=== PATIENT | male | born 1930 | race Caucasian/White ===

== ENCOUNTER → 2016-06-05 | Outpatient (CLI) | payer MEDICARE ==
[~2016-06-05] MED LIST: ASPI325T4 PO; DABI75CA3 PO; HYDR1TAB12 PO; MAGN100T6 PO; RIVA15TA PO; SIMV20TA3 PO; VITA1TAB68 PO
== END | disposition home or self-care (01) ==
LOC: RAD 11:53
PROVIDERS: ATTEND Internal Medicine
DX: R13.10 Dysphagia, unspecified (principal)
CPT/HCPCS: 74220

== ENCOUNTER 2016-07-24 10:13 | Inpatient (IN) | payer MEDICARE ==
[~2016-07-24] VITALS: Ht 182.9 cm; Wt 92.5 kg
[2016-07-24] MEDS ORDERED: OMNIPAQUE 350 MG/ML, 100ML BOTTLE ONE (10:48)
[2016-07-24] MEDS ORDERED: ASPIRIN 325 MG TABLET ONE (11:05)
[2016-07-24] MEDS ORDERED: SODIUM CHLORIDE 0.9% 1,000 ML IV ONE (11:07)
[2016-07-24] MEDS ORDERED: APIX2.5T PO (11:12)
[2016-07-24] MEDS ORDERED: ASPIRIN 325 MG TABLET PO ONE (11:30)
[2016-07-24] MEDS ORDERED: SODIUM CHLORIDE FLUSH 10ML SYR IVF ONE (11:30)
[2016-07-24] MEDS ORDERED: ACETAMINOPHEN 650 MG/20.3 ML UDC PO PRN (12:30)
[2016-07-24] MEDS ORDERED: DOCUSATE CALCIUM 240 MG CAPSULE PO PRN (12:30)
[2016-07-24 14:00] VITALS: BP 150/72
[2016-07-24] MEDS ORDERED: ACETAMINOPHEN 325 MG SUPP PR PRN (14:00)
[2016-07-24] MEDS ORDERED: HEPARIN wt. based STROKE protocol MC PRN (16:00)
[2016-07-24] MEDS: SODIUM CHLORIDE 0.9% 1,000 ML IV SCH ×2 (16:14→23:06)
[2016-07-24 20:01] VITALS: BP 130/66
[2016-07-24] MEDS ORDERED: SIMVASTATIN 20 MG TABLET PO SCH (21:00)
[2016-07-24] MEDS ORDERED: CLOPIDOGREL 75 MG TABLET PO SCH (21:00)
[2016-07-24] MEDS: HEPARIN 25,000 UNITS/500ML PMX 500 ML IV PRN (21:08)
[2016-07-24] MEDS: KETOROLAC 30 MG/1 ML IVPush PRN (21:55)
[2016-07-25 01:55] VITALS: BP 127/73
[2016-07-25 03:53] LABS: ASPARTATE AMINO TRANSFERASE 15 U/L (15-37); BLOOD UREA NITROGEN 29 mg/dL (7-18)
[2016-07-25] MEDS: SODIUM CHLORIDE 0.9% 1,000 ML IV SCH ×3 (06:10→19:55)
[2016-07-25] MEDS: KETOROLAC 30 MG/1 ML IVPush PRN ×3 (06:25→18:21)
[2016-07-25 07:59] VITALS: BP 130/74
[2016-07-25] MEDS: ASPIRIN 300 MG SUPP PR SCH (09:13)
[2016-07-25 13:00] VITALS: BP 100/57
[2016-07-25 19:11] VITALS: BP 129/72
[2016-07-26 00:04] VITALS: BP 113/64
[2016-07-26] MEDS: HEPARIN 25,000 UNITS/500ML PMX 500 ML IV PRN (01:16)
[2016-07-26] MEDS: SODIUM CHLORIDE 0.9% 1,000 ML IV SCH ×3 (01:21→18:43)
[2016-07-26] MEDS ORDERED: PAPAVERINE 30 MG/ML, 2ML ONE (06:02)
[2016-07-26] MEDS ORDERED: PROTAMINE SULFATE 10 MG/ML, 5ML ONE (06:03)
[2016-07-26] MEDS ORDERED: BUPIVACAINE/PF-EPI 0.5% 1:200K ONE (06:03)
[2016-07-26] MEDS ORDERED: HEPARIN 1,000 UNITS/ML, 10ML ONE (06:03)
[2016-07-26] MEDS ORDERED: BACITRACIN 50,000 UNIT ONE (06:04)
[2016-07-26] MEDS ORDERED: THROMBIN 5,000 UNIT VIAL TP ONE (06:04)
[2016-07-26] MEDS ORDERED: LIDOCAINE/PF 1%, 30ML ONE (06:04)
[2016-07-26 06:45] VITALS: BP 114/50
[2016-07-26] MEDS ORDERED: FENTANYL PF 250 MCG/5ML ONE (06:45)
[2016-07-26] MEDS ORDERED: MIDAZOLAM 1 MG/ML, 2ML ONE (06:45)
[2016-07-26] MEDS ORDERED: CEFAZOLIN 1,000 MG ONE ×2 (07:04)
[2016-07-26] MEDS ORDERED: PROPOFOL 10 MG/ML, 20ML ONE ×2 (07:04)
[2016-07-26] MEDS ORDERED: SUCCINYLCHOLINE 20 MG/ML, 10ML ONE ×2 (07:04)
[2016-07-26] MEDS ORDERED: ROCURONIUM 10 MG/ML ONE ×2 (07:04)
[2016-07-26 08:04] LABS: BLOOD UREA NITROGEN 29 mg/dL (7-18)
[2016-07-26] MEDS ORDERED: FENTANYL PF 100 MCG/2ML ONE (08:59)
[2016-07-26] MEDS: ASPIRIN 300 MG SUPP PR SCH (09:00)
[2016-07-26] MEDS ORDERED: LABETALOL 5MG/ML, 20ML IV PRN (09:30)
[2016-07-26] MEDS ORDERED: ACETAMINOPHEN 325 MG TABLET PO PRN (09:30)
[2016-07-26] MEDS ORDERED: ONDANSETRON 2MG/ML, 2ML IVPush PRN (09:30)
[2016-07-26] MEDS ORDERED: hydrALAzine 20 MG/ML, 1ML IV PRN (09:30)
[2016-07-26] MEDS ORDERED: HYDROmorphone 1 MG/ML, 1ML IV PRN (09:30)
[2016-07-26] MEDS ORDERED: OXYcodone 5 MG/5 ML ORAL.SOL UDC PO PRN (09:30)
[2016-07-26] MEDS ORDERED: GLYCOPYRROLATE 0.2MG/1ML ONE (09:30)
[2016-07-26] MEDS: FENTANYL PF 100 MCG/2ML IV PRN ×2 (10:25→10:31)
[2016-07-26] MEDS ORDERED: OXYcodone 5 MG/5 ML ORAL.SOL UDC ONE (10:32)
[2016-07-26 12:25] VITALS: BP 147/82
[2016-07-26] MEDS ORDERED: ONDANSETRON 2MG/ML, 2ML IV PRN (14:00)
[2016-07-26] MEDS: LABETALOL 5MG/ML, 20ML IVPush SCH ×2 (14:00→22:00)
[2016-07-26] MEDS ORDERED: LABETALOL 5MG/ML, 20ML IVPush PRN (14:00)
[2016-07-26] MEDS ORDERED: NITROPRUSSIDE 50 MG in DEXTROSE 5% 248 ML IV SCH (14:00)
[2016-07-26] MEDS ORDERED: PHENYLEPHRINE 10 MG in DEXTROSE 5% 249 ML IV SCH (14:00)
[2016-07-26 19:04] VITALS: BP 104/64
[2016-07-27 00:11] VITALS: BP 91/53
[2016-07-27] MEDS: KETOROLAC 30 MG/1 ML IVPush PRN (00:22)
[2016-07-27] MEDS: SODIUM CHLORIDE 0.9% 1,000 ML IV SCH ×4 (01:48→21:31)
[2016-07-27] MEDS: LABETALOL 5MG/ML, 20ML IVPush SCH (06:00)
[2016-07-27 06:26] LABS: BLOOD UREA NITROGEN 19 mg/dL (7-18)
[2016-07-27 07:00] VITALS: BP 145/67
[2016-07-27] MEDS: ASPIRIN 325 MG TABLET EC PO SCH (08:43)
[2016-07-27] MEDS: HYDROcodone/APAP 5/325 TABLET PO PRN (10:23)
[2016-07-27] MEDS ORDERED: MORPHINE SULFATE 4 MG/ML, 1ML IVPush PRN ×2 (10:30→16:30)
[2016-07-27 13:00] VITALS: BP 122/78
[2016-07-27] MEDS ORDERED: ONDANSETRON 2MG/ML, 2ML IV PRN (16:30)
[2016-07-27] MEDS: FLUTICASONE NASAL SPRAY 16GM NAS SCH (17:09)
[2016-07-27 19:35] VITALS: BP 128/72
[2016-07-27] MEDS: SIMVASTATIN 20 MG TABLET PO SCH (21:31)
[2016-07-28 03:08] VITALS: BP 135/96
[2016-07-28] MEDS: HYDROcodone/APAP 5/325 TABLET PO PRN ×2 (03:28→20:30)
[2016-07-28] MEDS: SODIUM CHLORIDE 0.9% 1,000 ML IV SCH (04:28)
[2016-07-28 06:24] LABS: BLOOD UREA NITROGEN 18 mg/dL (7-18)
[2016-07-28] MEDS: FLUTICASONE NASAL SPRAY 16GM NAS SCH (09:00)
[2016-07-28] MEDS: ASPIRIN 325 MG TABLET EC PO SCH (09:00)
[2016-07-28] MEDS: APIXABAN 2.5 MG TABLET PO SCH ×3 (10:25→21:00)
[2016-07-28] MEDS ORDERED: FILTER 0.22 MICRON IV PRN (10:25)
[2016-07-28] MEDS ORDERED: AMIODARONE 150 MG in DEXTROSE 5% 100 ML IV ONE ×2 (10:25→12:00)
[2016-07-28] MEDS: AMIODARONE 900 MG in DEXTROSE 5% 482 ML IV PRN ×2 (12:00→12:10)
[2016-07-28] MEDS ORDERED: AMIODARONE 900 MG in DEXTROSE 5% 482 ML IV PRN (12:10)
[2016-07-28] MEDS: SIMVASTATIN 20 MG TABLET PO SCH ×2 (20:30→21:00)
[2016-07-29 07:38] VITALS: BP 153/83
[2016-07-29] MEDS: ASPIRIN 325 MG TABLET EC PO SCH (09:00)
[2016-07-29] MEDS: FLUTICASONE NASAL SPRAY 16GM NAS SCH (09:00)
[2016-07-29] MEDS: APIXABAN 2.5 MG TABLET PO SCH (14:25)
[2016-07-29 14:26] VITALS: BP 167/95
[2016-07-29] MEDS ORDERED: AMIODARONE 200 MG TABLET PO SCH (14:30)
[2016-07-29] MEDS ORDERED: AMIO200T42 PO (15:40)
[2016-07-31 15:21] LABS: BLOOD UREA NITROGEN 22 mg/dL (7-18)
== END 2016-07-29 19:00 | disposition home or self-care (01) | DRG 37 ==
LOC: ED 10:17 → EDIP 11:08 → 4EST 12:17 → EDIP 07-29 17:10
PROVIDERS: ADMIT Internal Medicine; ATTEND Internal Medicine
PROC: 03UH0KZ Supplement Right Common Carotid Artery with Nonautologous Tissue Substitute, Open Approach (ICD-10-PCS; 2016-07-26)
PROC: 4A10X4G Monitoring of Central Nervous Electrical Activity, Intraoperative, External Approach (ICD-10-PCS; 2016-07-26)
PROC: 03CK0Z6 (ICD-10-PCS; 2016-07-26)
PROC: 03CM0Z6 (ICD-10-PCS; 2016-07-26)
PROC: 03CH0Z6 (ICD-10-PCS; principal; 2016-07-26 07:00)
DX: I63.131 Cerebral infarction due to embolism of right carotid artery (principal); G93.40 Encephalopathy, unspecified; D68.69 Other thrombophilia; I48.92 Unspecified atrial flutter; N18.4 Chronic kidney disease, stage 4 (severe); G81.94 Hemiplegia, unspecified affecting left nondominant side; G46.0 Middle cerebral artery syndrome; E78.5 Hyperlipidemia, unspecified; D72.829 Elevated white blood cell count, unspecified; D64.9 Anemia, unspecified; D69.6 Thrombocytopenia, unspecified; E78.00 Pure hypercholesterolemia, unspecified; F03.90 Unspecified dementia, unspecified severity, without behavioral disturbance, psychotic disturbance, mood disturbance, and anxiety; H91.90 Unspecified hearing loss, unspecified ear; I12.9 Hypertensive chronic kidney disease with stage 1 through stage 4 chronic kidney disease, or unspecified chronic kidney disease; I48.0 Paroxysmal atrial fibrillation; I73.9 Peripheral vascular disease, unspecified; N40.0 Benign prostatic hyperplasia without lower urinary tract symptoms; R29.710 NIHSS score 10; R47.01 Aphasia; Z96.653 Presence of artificial knee joint, bilateral; Z66 Do not resuscitate; Z79.01 Long term (current) use of anticoagulants; Z79.82 Long term (current) use of aspirin; Z79.899 Other long term (current) drug therapy; Z86.73 Personal history of transient ischemic attack (TIA), and cerebral infarction without residual deficits; Z86.79 Personal history of other diseases of the circulatory system; Z87.442 Personal history of urinary calculi; Z90.49 Acquired absence of other specified parts of digestive tract; Z90.89 Acquired absence of other organs; Z90.79 Acquired absence of other genital organ(s); Z88.8 Allergy status to other drugs, medicaments and biological substances; Z82.49 Family history of ischemic heart disease and other diseases of the circulatory system; Z87.891 Personal history of nicotine dependence
CPT/HCPCS: 36415; 70450; 70496; 70498; 70551; 80047; 80048; 80053; 80061; 85025; 85520; 85610; 85651; 85730; 93005; 93306; 95938; 95941; C1729; J0690; J1644; J1885; J2250; J2704; J2720; J3010; J3490; Q9967; 92523-GN; C1768; J0282; J0330; J2440; J7030; J7060

== ENCOUNTER → 2019-04-29 | Outpatient (CLI) | payer MEDICARE ==
[~2019-04-29] MED LIST changes: +AMIO200T42 PO; +APIX2.5T PO; +ASPI325T17 PO; -ASPI325T4 PO; -HYDR1TAB12 PO; +HYDR1TAB13 PO; +SIMV20TA19 PO; -SIMV20TA3 PO
== END | disposition home or self-care (01) ==
LOC: RAD 08:06
PROVIDERS: ATTEND Internal Medicine Gastroenterology
DX: K22.2 Esophageal obstruction (principal); I48.0 Paroxysmal atrial fibrillation; I63.9 Cerebral infarction, unspecified; Z79.01 Long term (current) use of anticoagulants
CPT/HCPCS: 74220